=== PATIENT | female | born 1955 | race Caucasian/White ===

== ENCOUNTER 2018-10-19 06:39 | Day surgery (SDC) | payer MEDICARE ==
[~2018-10-19] VITALS: Ht 162.6 cm; Wt 54.9 kg
[~2018-10-19 06:39] MED LIST: CEPH500 PO; CITA20 PO; Estradiol1 MG PO; HYDACE5 PO; IBUP800 PO; METR500 PO; MULVITA PO; OXYACE5T PO; SULTRIDS PO; Vivelle-Dot1 EAC1 TD
== END 2018-10-19 09:00 | disposition home or self-care (01) ==
LOC: ORSCSDS 06:39
PROVIDERS: Internal Medicine Gastroenterology
PROC: 0DBK8ZX Excision of Ascending Colon, Via Natural or Artificial Opening Endoscopic, Diagnostic (ICD-10-PCS; principal; 2018-10-19 08:00)
DX: R94.8 Abnormal results of function studies of other organs and systems (principal); Z86.010 Personal history of colon polyps; D12.2 Benign neoplasm of ascending colon; K57.30 Diverticulosis of large intestine without perforation or abscess without bleeding; K64.8 Other hemorrhoids; K64.4 Residual hemorrhoidal skin tags; Z80.0 Family history of malignant neoplasm of digestive organs; Z83.71 Family history of colonic polyps; L93.0 Discoid lupus erythematosus; Z87.891 Personal history of nicotine dependence; Z79.899 Other long term (current) drug therapy
CPT/HCPCS: 88305; J0330; J1980; J2405; J2704; J7120

== ENCOUNTER → 2019-09-20 | Outpatient (CLI) | payer MEDICARE | LOC: PLD 13:42 → LAB SHORT 13:42 | DX: D48.5 Neoplasm of uncertain behavior of skin (principal) | CPT/HCPCS: 88305 ==

== ENCOUNTER → 2022-07-30 | Outpatient (CLI) | payer MEDICARE | LOC: LAB SHORT 11:54 → LAB 11:54 | DX: L08.9 Local infection of the skin and subcutaneous tissue, unspecified (principal) | CPT/HCPCS: 87070; 87205 ==

== ENCOUNTER 2023-11-17 12:01 | Day surgery (SDC) | payer MEDICARE ==
[~2023-11-17] VITALS: Ht 162.6 cm; Wt 63.9 kg
[~2023-11-17 12:01] MED LIST changes: +Aspir 8181 MG PO; +Atropine Sulfate 0.1 MG/ML 10ML SYR ONE; +Glycopyrrolate 0.2 MG/ML 1MLVIAL ONE; +Hyoscyamine Sulfate 0.5 MG/ML 1ML Amp ONE; +Lactated Ringer's 1,000 ML IV ONE; +Lidocaine 2% 5 ML SDV ONE; +Lidocaine HCl/Pf 1% 5 ML VIAL ONE; +Methylene Blue 1% 100 MG/10 ML VIAL ONE; +Norco 5-325 Ta1 EACH PO; +OXYC5 PO; +Ondansetron HCl 2 MG / ML 2ML Vial ONE; +ePHEDrine Sulfate 50 MG/ML 1ML Injection ONE; +propofoL 50 ML IV ONE
[2023-11-17] MEDS ORDERED: IBUP800 (12:49)
[2023-11-17] MEDS ORDERED: Lactated Ringer's 1,000 ML IV ONE (13:14)
[2023-11-17 14:38] VITALS: BP 133/80
== END 2023-11-17 14:34 | disposition home or self-care (01) ==
LOC: ORSCSDS 12:01
PROVIDERS: Internal Medicine Gastroenterology
PROC: 0DJD8ZZ Inspection of Lower Intestinal Tract, Via Natural or Artificial Opening Endoscopic (ICD-10-PCS; principal; 2023-11-17 13:15)
DX: Z12.11 Encounter for screening for malignant neoplasm of colon (principal); Z86.010 Personal history of colon polyps; Z80.0 Family history of malignant neoplasm of digestive organs; Z83.719 Family history of colon polyps, unspecified; K64.8 Other hemorrhoids; K57.30 Diverticulosis of large intestine without perforation or abscess without bleeding
CPT/HCPCS: J0461; J1980; J2001; J2405; J2704; J7120; Q9968